=== PATIENT | male | born 1955 | race Two or more races ===

== ENCOUNTER 2021-05-30 09:46 | Outpatient (CLI) | payer OTHER | END 2021-05-30 09:51 | disposition home or self-care (01) | LOC: LAB 09:46 | PROVIDERS: ATTEND Internal Medicine Cardiovascular Disease | DX: R00.2 Palpitations (principal); I11.9 Hypertensive heart disease without heart failure; E11.9 Type 2 diabetes mellitus without complications; E78.2 Mixed hyperlipidemia ==